=== PATIENT | female | born 1960 | race Caucasian/White ===

== ENCOUNTER 2017-04-05 15:59 | Inpatient (IN) | payer MEDICAID, OTHER ==
[2017-04-05 15:59] VITALS: BMI 27.2
--- NOTE | 2017-04-05 16:30 | C.PDOC ---
History Of Present Illness 56 yr old female presents to the ER for heroin detox., Patient is a pre- screened. Reports last use was last night. Patient is also complaining of flu like symptoms, nausea and myalgia. Denies any other drug use or alcohol, SI, HI , fever, vomiting, abdominal pain, weakness or numbness. Time Seen by Provider: 04/05/17 16:24 Chief Complaint (Nursing): Substance Abuse History Per: Patient History/Exam Limitations: no limitations Onset/Duration Of Symptoms: Days Suicide/Self Injury Attempted (Context): None Past Medical History Reviewed: Historical Data, Nursing Documentation, Vital Signs Vital Signs: Last Vital Signs Temp 98.5 F 04/05/17 16:10 Pulse 92 H 04/05/17 16:10 Resp 20 04/05/17 16:10 BP 114/76 04/05/17 16:10 Pulse Ox 92 L 04/05/17 17:15 - Medical History PMH: Asthma Family History: States: No Known Family Hx - Social History Hx Tobacco Use: Yes Hx Alcohol Use: No Hx Substance Use: Yes (today last used) - Immunization History Hx Tetanus Toxoid Vaccination: No Hx Influenza Vaccination: Yes Hx Pneumococcal Vaccination: Yes Review Of Systems Except As Marked, All Systems Reviewed And Found Negative. Constitutional: Negative for: Fever Gastrointestinal: Positive for: Nausea. Negative for: Vomiting, Abdominal Pain Neurological: Negative for: Weakness, Numbness Psych: Negative for: Suicidal ideation Physical Exam - Physical Exam Appears: Non-toxic, No Acute Distress, Other (Mild withdrawl symptoms) Skin: Warm, Dry, No Rash Head: Atraumatic, Normacephalic Eye(s): bilateral: Normal Inspection, PERRL, EOMI Oral Mucosa: Moist Lips: Normal Appearing Neck: Normal, Normal ROM, Supple Respiratory: Normal Breath Sounds, No Rales, No Rhonchi, No Stridor, No Wheezing Extremity: Normal ROM, No Tenderness, No Swelling Neurological/Psych: Oriented x3, Normal Speech, Other (Calm. Cooperative. No acute intoxication.) Gait: Steady ED Course And Treatment - Laboratory Results Result Diagrams: 04/05/17 16:46 04/05/17 16:46 O2 Sat by Pulse Oximetry: 92 - Other Rad CXR X-Ray: Viewed By Me, Read By Radiologist Interpretation: HISTORY: MED CLEAR. COMPARISON: 10/25/2015. TECHNIQUE: Chest PA and lateral. FINDINGS: LUNGS: No active pulmonary disease. PLEURA: No significant pleural effusion identified. No pneumothorax apparent. CARDIOVASCULAR: Normal. OSSEOUS STRUCTURES: No significant abnormalities. VISUALIZED UPPER ABDOMEN: Normal. OTHER FINDINGS: None. IMPRESSION: No active disease. No significant interval change compared to the prior examination (s). . Concordant results with the preliminary interpretation rendered by the emergency department physician\PA at the conclusion of the procedure. Progress - Re-Evaluation Re-evaluation Note: 04/05/17 16:30 d/w crisis hansel will eval in ER 04/05/17 17:14 O2 SAT C/W SMOKING HISTORY, PROBABLE DUE TO COPD. PT DENIES SOB OR OTHER RESP SX. CXR NO ACUTE FINDINGS, IMPROVED COMPARED TO PRIOR. DENIES UTI SX. RECOMMEND MEDICINE CONSULT PRN. MED CLEAR FOR PSYCH EVAL. CRISIS HANSEL NOTIFIEID - Data Reviewed Data Reviewed: Lab, Old records Medical Decision Making Medical Decision Making: PLAN: * CXR * Alcohol Serum * Drug Screen * CBC * CMP * Urinalysis * Nicoderm TD Disposition Counseled Patient/Family Regarding: Studies Performed, Diagnosis - Disposition Disposition: HOSPITALIZED Disposition Time: 17:19 Condition: STABLE Forms: [facility] (Amharic) - Clinical Impression Clinical Impression: Opiate abuse, continuous - Scribe Statement The provider has reviewed the documentation as recorded by the Viky Clinton Provider Attestation: All medical record entries made by the Viky were at my direction and personally dictated by me. I have reviewed the chart and agree that the record accurately reflects my personal performance of the history, physical exam, medical decision making, and the department course for this patient. I have also personally directed, reviewed, and agree with the discharge instructions and disposition. Decision To Admit - Pt Status Changed To: Hospital Disposition Of: Inpatient - Admit Certification Admit to Inpatient:: After my assessment, the patient will require hospitalization for at least two midnights. This is because of the severity of symptoms shown, intensity of services needed, and/or the medical risk in this patient being treated as an outpatient. - InPatient: Physician Admission Certification: I certify that this patient requires 2 or more midnights of care for the following reason:: SEE NOTE - . Bed Request Type: Detox Admitting Physician: Betina Jay Patient Diagnosis: Opiate abuse, continuous
--- NOTE | 2017-04-05 16:49 | RAD ---
HISTORY: MED CLEAR COMPARISON: 10/25/2015 TECHNIQUE: Chest PA and lateral FINDINGS: LUNGS: No active pulmonary disease. PLEURA: No significant pleural effusion identified. No pneumothorax apparent. CARDIOVASCULAR: Normal. OSSEOUS STRUCTURES: No significant abnormalities. VISUALIZED UPPER ABDOMEN: Normal. OTHER FINDINGS: None. IMPRESSION: No active disease. No significant interval change compared to the prior examination(s). Concordant results with the preliminary interpretation rendered by the emergency department physician procedure.
[2017-04-05 16:51] LABS: BASO % 0.5 % (0.0-2.0); EOS % 0.1 % (0.0-4.0); HEMOGLOBIN 15.1 g/dL (11.0-16.0); LYMPH # 2.1 K/uL (1.0-4.3); LYMPH % 30.8 % (20.0-40.0); MEAN CELL VOLUME 82.6 fL (81.0-99.0); MEAN CORPUSCULAR HEMOGLOBIN 28.3 pg (27.0-31.0); MEAN CORPUSCULAR HGB CONC 34.3 g/dL (33.0-37.0); MEAN PLATELET VOLUME 7.6 fL (7.2-11.7); MONO # 0.4 K/uL (0.0-0.8); MONO % 6.4 % (0.0-10.0); NEUT # 4.2 K/uL (1.8-7.0); NEUT % 62.2 % (50.0-75.0); NRBC % 0.1 % (0.0-2.0); RBC 5.32 Mil/uL (3.80-5.20); RED CELL DISTRIBUTION WIDTH 14.2 % (11.5-14.5); WHITE BLOOD COUNT 6.8 K/uL (4.8-10.8)
[2017-04-05 16:56] LABS: SQUAMOUS EPITHIAL 20 /hpf (0-5); URINE BACTERIA MOD (<OCC); URINE BILIRUBIN NEGATIVE (NEGATIVE); URINE BLOOD NEGATIVE (NEGATIVE); URINE CLARITY Hazy (Clear); URINE COLOR Yellow (YELLOW); URINE GLUCOSE (UA) NORMAL (Normal); URINE LEUKOCYTE ESTERASE 1+ Leu/uL (Negative); URINE NITRATE NEGATIVE (NEGATIVE); URINE PROTEIN 1+ mg/dL (NEGATIVE); URINE UROBILINOGEN NORMAL mg/dL (0.2-1.0)
[2017-04-05 17:09] LABS: BARBITURATES, UR NEGATIVE (NEGATIVE); BENZODIAZEPINES, UR POSITIVE (NEGATIVE); OPIATES, UR POSITIVE (NEGATIVE); PHENCYCLIDINE, UR NEGATIVE (NEGATIVE)
[2017-04-05 17:11] LABS: ALB/GLOB RATIO 1.2 (1.0-2.1); ALBUMIN 4.3 g/dL (3.5-5.0); ALT/SGPT 28 U/L (9-52); AST/SGOT 30 U/L (14-36); BLOOD UREA NITROGEN 11 mg/dL (7-17); CALCIUM 8.7 mg/dl (8.6-10.4); GFR AFRICAN-AMERICAN > 60; GFR NON-AFRICAN AMERICAN > 60
--- NOTE | 2017-04-05 18:52 | PCM.BM ---
<Aleyda Dickinson - Last Filed: 04/05/17 18:51> Treatment Plan Problems - Problems identified on initial assessmt Potential for opiate withdrawal Date Initiated: 04/05/17 Time Initiated: 18:52 Assessment reference: NA Status: Active Treatment assets and liabiliti Patient Assests: cooperative, ADL independent, negotiates basic needs, cognitively intact Patient Liabilities: substance abuse (opiate) - Milieu Protocol Maintain good personal hygiene: daily Encourage regular showers, daily Remind patient to perform daily oral care, daily Assist patient to perform ADL's Conduct patient checks and document Observation sheet: Q15 minutes Maintain personal safety: every shift Educate patient to report safety concerns to staff, every shift Monitor environment for contraband/sharps Medication safety: Monitor for expected outcome, potential side effects: every shift, Assess barriers to learning: every shift, Assess readiness for medication education: every shift <Leigh Jeter - Last Filed: 04/06/17 14:26> - Diagnosis (1) Opiate abuse, continuous Status: Acute Interventions: 04/06/17 14:26 * Assess 7x/week regarding severity of withdrawal * Educate regarding risks, benefits, side effects and alternatives of medications * Use Motivational Interviewing for abstinence * Use CBT for relapse prevention * Medication management for withdrawal symptoms * Encourage medication assisted treatment * <Barbara Coello - Last Filed: 04/06/17 16:27> Family Contact Family involvement: Zoeyy/SO not involved - Goals for Treatment Patient goals for treatment: Complete detox and transition to IOP. Discharge/Continuing Care - Education Needs Education Needs: Patient Medication, Patient Diagnosis/Disease Process, Patient Coping Skills, Patient Anger Management skills, Patient Placement options, Patient Community resources - Discharge Discharge Criteria: No longer exhibiting s/s of withdrawal, Reduction of target symptoms Discharge to:: Home - Treatment Team Participation Patient/Family/SO Statement: 04/06/17 16:27 "I wanna go to IOP after this..." Discussed with Family/SO: No Was Patient/Family/SO present at Treatment Team Meeting: Yes
[2017-04-05] MEDS ORDERED: Aluminum Hydroxide/Magnesium Hydroxide Susp (30 mL) PO PRN (18:54)
--- NOTE | 2017-04-06 13:25 | PCM.PSYCH ---
Initial Psychiatric Evaluation - Initial Psychiatric Evaluation Type of Admission: Voluntary Legal Status: Capacity Chief Complaint (in patient's own words): "I needed to stop this" History of Present Illness and Precipitating Events: The patient is seen, chart reviewed and case discussed. 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 The patient is using heroin up to 8 bags a day intranasally for the past 35 years. Her longest sobriety was 6 years around 19 6. She also uses Xanax 2 mg, sometimes more, daily for the past 8 months. She smokes a pack per day cigarettes and denies all other drugs and alcohol. Next and she was in [facility] program in 2017 her dose was 110 but she couldn't continue due to daily sessions. She used Suboxone from the streets. She was in detox 10 or 15 times and rehabilitation 5 times and she goes to . She is on probation. Past psych history: She reports having anxiety now and in the past, that's why she was given Xanax. No admissions and no suicide attempts. Family psych history: Denies Medical history: Denies. She was tested negative for HIV and hepatitis C about a year ago. Current Medications: Active Medications Generic Name Dose Route Start Last Admin Trade Name Freq PRN Reason Stop Dose Admin Al Hydrox/Mg Hydrox/Simethicone 30 ml 04/05/17 18:54 Maalox 30 Ml PO TID PRN Indigestion / Heartburn Amitriptyline HCl 50 mg 04/06/17 22:00 Elavil PO 04/08/17 22:01 HS REBEKAH Amitriptyline HCl 25 mg 04/08/17 22:00 Elavil PO 04/08/17 22:01 ONCE ONE Chlordiazepoxide 25 mg 04/06/17 12:00 04/06/17 11:59 Librium PO 04/10/17 11:59 25 mg Q6H REBEKAH Administration Taper Clonidine HCl 0.1 mg 04/05/17 18:54 Catapres PO Q8 PRN COWS Score More or Equal to 5 Hydroxyzine HCl 50 mg 04/06/17 09:59 Atarax PO Q6H PRN Anxiety Loperamide HCl 2 mg 04/05/17 18:54 Imodium PO Q8 PRN Diarrhea Methadone HCl 15 mg 04/06/17 10:00 04/06/17 09:29 Methadone PO 04/10/17 09:59 15 mg Q24H REBEKAH Administration Taper Nicotine 1 patch 04/06/17 10:00 04/06/17 09:29 Nicoderm Cq TD 1 patch DAILY REBEKAH Administration Nitrofurantoin Macrocrystals 100 mg 04/06/17 10:00 04/06/17 10:25 Macrobid PO 04/13/17 10:01 100 mg Q12H REBEKAH Administration Ondansetron HCl 4 mg 04/05/17 18:54 Zofran Tab PO Q8 PRN Nausea/Vomiting Pseudoephedrine HCl 60 mg 04/05/17 18:54 Sudafed Tab PO QID PRN Nasal/Sinus Congestion Quetiapine Fumarate 300 mg 04/06/17 22:00 Seroquel PO HS REBEKAH Past Psychiatric History - Past Psychiatric History Previous Treatment History: None Pertinent Medical Hx (Current Medical&Sleep Prob, Allergies): Allergies Allergy/AdvReac Type Severity Reaction Status Date / Time No Known Allergies Allergy Verified 04/05/17 16:29 Albuterol HFA [Ventolin HFA 90 mcg/actuation (8 g)] 2 puff IH [id number] #1 puff Review of Systems - Neurological Neurological: UNREMARKABLE - Psychiatric Psychiatric: Abnormal Sleep Pattern, Anxiety. absent: Homicidal Ideation, Paranoia, Suicidal Ideation Mental Status Examination - Personal Presentation Personal Presentation: Looks older than stated age - Affect Affect: Constricted - Motor Activity Motor Activity: Calm - Reliability in Providing Information Reliability in Providing Information: Good - Speech Speech: Organized - Mood Mood: Anxious - Formal Thought Process Formal Thought Process: No Impairment - Cognitive Functions Orientation: Person, Place, Situation, Time Sensorium: Alert Attention/Concentration: Attentive Estimate of Intelligence: Average Judgement: Intact, as evidence by: Insight regarding need for hospitalization Memory: Recent intact, as evidence by: Ability to recall events of the day, Remote intact, as evidenced by: Abilit to recall sig. life events - Risk Risk: Withdrawal, Diminished functioning - Strength & Assets Inventory Strength & Assets Inventory: Cooperative - Limitations Limitations: Living alone, Other DSM 5 DX - DSM 5 DSM 5 Diagnosis: Opioid withdrawal Opioid use disorder, severe Sedative, hypnotic or anxiolytic use disorder, moderate Generalized anxiety disorder - Recommended/Plan of Treatment Treatment Recommendations and Plan of Treatment: Methadone detox Librium detox Gabapentin for augmentation Taper off elevated due to risks EKG Increase Seroquel for sleep As needed medications All risks, benefits and alternatives of the meds discussed, and the pt agreed and understood. Attend groups and activities Supportive therapy and psychoeducation DC for abstinence CBT for relapse prevention Encourage MAT Refer to rehab or IOP, and self-help groups Smoking cessation with DC Nicotine patch 34 min Projected ELOS: 5-6 days Prognosis: Good with treatment Discharge Plan and Discharge Criteria: No withdrawal symptoms Refer to rehabilitation or IOP/MAT - Smoking Cessation Smoking Cessation Initiated: Yes
--- NOTE | 2017-04-07 13:57 | PCM.PYCHPN ---
Psychiatric Progress Note - Psychiatric Progress Note Patient seen today, length of contact: 16 min Patient Chief Complaint: "I am still feeling on edge " Problems Identified/Issues Discussed: The pt is seen, chart reviewed, case discussed with staff. Patient is nervous about her past EKG. Spoke with patient about EKG to calm her nerves The pt is compliant with medications and reports no side-effects. Symptoms are improving but needs more time to stabilize. After care discussed, support and psychoeducation given. Medication Change: Yes (detox changes daily) Medical Record Reviewed: Yes Mental Status Examination - Cognitive Function Orientation: Person, Place, Situation, Time Memory: Intact Attention: WNL Concentration: WNL Association: WNL Fund of Knowledge: WNL - Mood Mood: Anxious - Affect Affect: Constricted - Speech Speech: Appropriate - Formal Thought Process Formal Thought Process: No Impairment - Suicidal Ideation Suicidal Ideation: No - Homicidal Ideation Homicidal Ideation: No Goal/Treatment Plan - Goal/Treatment Plan Need for Continued Stay: Discharge may exacerbated symptoms, Severe functional impairment Progress Toward Problem(s) and Goals/Treatment Plan: Methadone detox Librium detox Gabapentin for augmentation Taper off elevated due to risks EKG Increase Seroquel for sleep As needed medications All risks, benefits and alternatives of the meds discussed, and the pt agreed and understood. Attend groups and activities Supportive therapy and psychoeducation NE for abstinence CBT for relapse prevention Encourage MAT Refer to rehab or IOP, and self-help groups Smoking cessation with NE Nicotine patch
--- NOTE | 2017-04-08 00:16 | CARD ---
APPROVED REPORT EKG Measurement Heart [id number] <Conclusion> Normal sinus rhythm with sinus arrhythmia Possible Anterolateral infarct, age undetermined Abnormal ECG
[2017-04-08] MEDS ORDERED: Influenza Vaccine 60 mcg/0.5 mL SYR (4YR UP) IM ONE (12:39)
[2017-04-08] MEDS ORDERED: Pneumococcal 23-Valent Vaccine IM ONE (12:40)
--- NOTE | 2017-04-08 13:09 | PCM.PYCHPN ---
Psychiatric Progress Note - Psychiatric Progress Note Patient seen today, length of contact: 16 min Patient Chief Complaint: "Nervous" Problems Identified/Issues Discussed: The pt is seen, chart reviewed, case discussed with staff. Support given, CBT and TX used briefly No new symptoms reported, improving slowly and needs more time No SEs from medications, risks discussed. After care discussed Medication Change: Yes (detox changes daily) Medical Record Reviewed: Yes Mental Status Examination - Cognitive Function Orientation: Person, Place, Situation, Time Memory: Intact Attention: WNL Concentration: WNL Association: WNL Fund of Knowledge: WNL - Mood Mood: Anxious - Affect Affect: Constricted - Speech Speech: Appropriate - Formal Thought Process Formal Thought Process: No Impairment - Suicidal Ideation Suicidal Ideation: No - Homicidal Ideation Homicidal Ideation: No Goal/Treatment Plan - Goal/Treatment Plan Need for Continued Stay: Discharge may exacerbated symptoms, Severe functional impairment Progress Toward Problem(s) and Goals/Treatment Plan: Methadone detox Librium detox Gabapentin for augmentation Taper off elevated due to risks EKG Increase Seroquel for sleep As needed medications All risks, benefits and alternatives of the meds discussed, and the pt agreed and understood. Attend groups and activities Supportive therapy and psychoeducation TX for abstinence CBT for relapse prevention Encourage MAT Refer to rehab or IOP, and self-help groups Smoking cessation with TX Nicotine patch
[2017-04-08 16:20] VITALS: RESP 18
[2017-04-09 05:43] VITALS: O2SAT 96
[2017-04-09 08:04] VITALS: BP 115/77; PULSE 100; TEMP 97.6
--- NOTE | 2017-04-09 08:39 | PCM.PYCHDC ---
Mental Status Examination - Mental Status Examination Orientation: Person, Place, Situation, Time Memory: Intact Mood: Anxious Affect: Constricted Speech: Appropriate, Loud Attention: WNL Concentration: WNL Association: WNL Fund of Knowledge: WNL Formal Thought Process: No Impairment Suicidal Ideation: No Current Homicidal Ideation?: No Discharge Summary - Discharge Note Reason for Hospitalization: Detox from opioids Consultations:: List each consultation separately and include: 1. Reason for request. 2. Findings. 3. Follow-up Summary of Hospital Course include:: 1. Description of specific treatment plan utilized for patients during their course of treatmen. 2. Summarize the time- course for resolution of acute symptoms and/or regressed behaviors. 3. Describe issues identified and worked on during hospitalization. 4. Describe medication utilized. 5. Describe medical problems identified and treated. 6. Reassessment of suicide risk Summary of Hospital Course: The pt was admitted and started on treatment with psychotherapy, support, psychoeducation and medications. PA and CBT used. The pt attended groups and activities, as well as milieu therapy. All the risks and benefits of medications are discussed and the patient understood and agreed. The pt improved with the treatments provided. After care discussed with the patient. Patient will be attending [facility] During the discharge patient was very irritable and angry for needing to wait for discharge orders to be processed. She states she had a "horrible experience " at this detox facility even though there were no issues and everybody did their best to help her. She was upset that she didn't get xanax. - Final Diagnosis (DSM 5) Condition upon Discharge: STABLE DSM 5: Opioid withdrawal Opioid use disorder, severe Sedative, hypnotic or anxiolytic use disorder, moderate Generalized anxiety disorder Personality disorder - unspecified (borderline traits) Disposition: HOME/ ROUTINE Follow-up Treatment Plan: Methadone detox Librium detox Gabapentin for augmentation Taper off elevated due to risks EKG Increase Seroquel for sleep As needed medications All risks, benefits and alternatives of the meds discussed, and the pt agreed and understood. Attend groups and activities Supportive therapy and psychoeducation PA for abstinence CBT for relapse prevention Encourage MAT Refer to rehab or IOP, and self-help groups Smoking cessation with PA Nicotine patch Prescriptions/Medication Reconciliation: Gabapentin [Neurontin] 300 mg PO BID #60 cap Nitrofurantoin Macrocrystals [Macrobid] 100 mg PO Q12H #4 cap QUEtiapine [Seroquel] 100 mg PO DAILY #30 tab QUEtiapine [Seroquel] 300 mg PO HS #30 tab - Smoking Cessation Smoking Cessation Medication prescribed: No - Antipsychotic Medications Pt discharged on 2 or more routine antipsychotic medications: No
== END 2017-04-09 08:52 | disposition home or self-care (01) | DRG 745 ==
LOC: C.ER 15:59 → C.7D 17:19
PROVIDERS: ADMIT Psychiatry & Neurology Psychiatry; ATTEND Psychiatry & Neurology Psychiatry
PROC: HZ2ZZZZ Detoxification Services for Substance Abuse Treatment (ICD-10-PCS; principal; 2017-04-05)
PROC: GZHZZZZ Group Psychotherapy (ICD-10-PCS; 2017-04-05)
DX: F11.23 Opioid dependence with withdrawal (principal); F17.210 Nicotine dependence, cigarettes, uncomplicated; F41.1 Generalized anxiety disorder; F60.9 Personality disorder, unspecified; J45.909 Unspecified asthma, uncomplicated; F19.10 Other psychoactive substance abuse, uncomplicated

== ENCOUNTER 2017-08-18 23:18 | Emergency (ER) | payer MEDICAID ==
[2017-08-18 23:19] VITALS: BMI 27.2
[2017-08-18 23:58] VITALS: BP 113/80; PULSE 116; RESP 24; O2SAT 93
[2017-08-19] MEDS ORDERED: Albuterol-Ipratrop 3 mg / 0.5 (3 ml) UD ONE ×4 (00:04→01:26)
[2017-08-19] MEDS ORDERED: Albuterol-Ipratrop 3 mg / 0.5 (3 ml) UD INH STA (00:04)
[2017-08-19] MEDS ORDERED: Sodium Chloride 0.9% 1,000 ML IV ONE (00:07)
--- NOTE | 2017-08-19 00:07 | C.PDOC ---
History Of Present Illness Patient presents to the ER with a complaint of SOB worsening over the last week. Patient states she has been feeling sick and has been coughing greenish/ brownish sputum. Patient could not find her inhaler at home and notes she still smokes. Denies chest pain, nausea, or vomiting. Time Seen by Provider: 08/19/17 00:07 Chief Complaint (Nursing): Respiratory Distress History Per: Patient History/Exam Limitations: no limitations Onset/Duration Of Symptoms: Days Current Symptoms Are (Timing): Still Present Associated Symptoms: Cough, Sputum Production Preciptating Factors: Other (Not known) Severity: Moderate Pain Scale Rating Of: 4 Recent travel outside of the [place]: No - Asthma History Rescue Medications: See Home Medication List Past Medical History Reviewed: Historical Data, Nursing Documentation, Vital Signs Vital Signs: Last Vital Signs Temp 100.2 F H 08/19/17 01:26 Pulse 116 H 08/18/17 23:52 Resp 24 08/18/17 23:52 BP 113/80 08/18/17 23:52 Pulse Ox 93 L 08/19/17 00:39 - Medical History PMH: Asthma - [facility] Procedures DETOXIFICATION SERVICES FOR SUBSTANCE ABUSE TREATMENT (04/05/17) GROUP PSYCHOTHERAPY (04/05/17) Family History: States: No Known Family Hx - Social History Hx Tobacco Use: Yes Hx Alcohol Use: No Hx Substance Use: No - Immunization History Hx Tetanus Toxoid Vaccination: No Hx Influenza Vaccination: Yes Hx Pneumococcal Vaccination: Yes Review Of Systems Constitutional: Negative for: Fever, Chills Cardiovascular: Negative for: Chest Pain, Palpitations Respiratory: Positive for: Cough, Sputum Gastrointestinal: Negative for: Nausea, Vomiting Physical Exam - Physical Exam Appears: Non-toxic Skin: Warm, Dry Head: Normacephalic Oral Mucosa: Moist Chest: Symmetrical, No Tenderness Cardiovascular: Rhythm Regular Respiratory: No Rales, Rhonchi (Diffuse), Wheezing Gastrointestinal/Abdominal: Soft, No Tenderness Neurological/Psych: Oriented x3 ED Course And Treatment - Laboratory Results Result Diagrams: 08/19/17 00:42 08/19/17 00:42 O2 Sat by Pulse Oximetry: 93 Pulse Ox Interpretation: Normal - Radiology CXR: Interpreted by Me, Viewed By Me CXR Interpretation: Yes: Infiltrates (rll). No: Fracture, Pnemothorax Progress Note: Blood work, CXR, EKG, and urinalysis ordered. Albuterol nebulizer , zosyn, solumedrol, and IV fluids administered. Critical Care Time - Critical Care Note Total Time (in mins): 30 Documented critical care: time excludes all time spent performing seperately billable procedures. Disposition Counseled Patient/Family Regarding: Studies Performed, Diagnosis, Need For Followup, Rx Given - Disposition Referrals: [facility] [Outside] On License Of [facility] [Outside] Disposition: HOME/ ROUTINE Disposition Time: 00:07 Condition: FAIR Additional Instructions: Please return if symptoms recur Prescriptions: Albuterol HFA [Ventolin HFA 90 mcg/actuation (8 g)] 2 puff IH [id number] #1 puff Azithromycin [Zithromax Tri-Kofi] 500 mg PO DAILY #3 tablet Prednisone [Deltasone] 20 mg PO DAILY #5 tablet Instructions: Asthma, Adult (DC) Forms: [facility] ([place]) - Clinical Impression Clinical Impression: Exacerbation of asthma - Scribe Statement The provider has reviewed the documentation as recorded by the Scribelida Venegas All medical record entries made by the Scribe were at my direction and personally dictated by me. I have reviewed the chart and agree that the record accurately reflects my personal performance of the history, physical exam, medical decision making, and the department course for this patient. I have also personally directed, reviewed, and agree with the discharge instructions and disposition.
[2017-08-19] MEDS ORDERED: Piperacillin/Tazobact 3.375 gm 100 ML IVPB STA (00:24)
[2017-08-19] MEDS: Albuterol-Ipratrop 3 mg / 0.5 (3 ml) UD IH SCH ×3 (00:28→01:26)
[2017-08-19 00:45] LABS: BASO % 0.3 % (0.0-2.0); EOS % 0.4 % (0.0-4.0); HEMOGLOBIN 13.6 g/dL (11.0-16.0); LYMPH # 2.3 K/uL (1.0-4.3); LYMPH % 26.1 % (20.0-40.0); MEAN CELL VOLUME 83.7 fL (81.0-99.0); MEAN CORPUSCULAR HEMOGLOBIN 28.5 pg (27.0-31.0); MEAN CORPUSCULAR HGB CONC 34.1 g/dL (33.0-37.0); MEAN PLATELET VOLUME 7.6 fL (7.2-11.7); MONO # 0.9 K/uL (0.0-0.8); MONO % 10.1 % (0.0-10.0); NEUT # 5.5 K/uL (1.8-7.0); NEUT % 63.1 % (50.0-75.0); RBC 4.76 Mil/uL (3.80-5.20); RED CELL DISTRIBUTION WIDTH 13.9 % (11.5-14.5); WHITE BLOOD COUNT 8.7 K/uL (4.8-10.8)
[2017-08-19] MEDS ORDERED: Piperacillin/Tazobact 3.375 gm 100 ML IVPB ONE (00:55)
[2017-08-19 01:07] LABS: CALCIUM 8.4 mg/dl (8.6-10.4); GFR AFRICAN-AMERICAN > 60; GFR NON-AFRICAN AMERICAN > 60
[2017-08-19 01:11] LABS: BLOOD UREA NITROGEN 12 mg/dL (7-17)
[2017-08-19 01:27] VITALS: TEMP 100.2
--- NOTE | 2017-08-19 09:02 | RAD ---
PROCEDURE: CHEST RADIOGRAPH, 1 VIEW HISTORY: SOB COMPARISON: 04/05/2017 FINDINGS: LUNGS: Opacity mid and lower right lung. Possible pneumonia. Followup advised. No other infiltrate elsewhere. PLEURA: No pneumothorax or pleural fluid seen. CARDIOVASCULAR: Normal. OSSEOUS STRUCTURES: No significant abnormalities. VISUALIZED UPPER ABDOMEN: Normal. OTHER FINDINGS: None. IMPRESSION: Mid and lower right lung opacity. Possible pneumonia. Followup advised.
== END 2017-08-19 01:44 | disposition home or self-care (01) ==
LOC: C.ER 23:18
DX: J45.901 Unspecified asthma with (acute) exacerbation (principal); F17.210 Nicotine dependence, cigarettes, uncomplicated
CPT/HCPCS: 71045; 80048; 83735; 85025; 96365; 96375; 99284; J2543; J2930; J7030

== ENCOUNTER 2018-01-18 16:45 | Inpatient (IN) | payer MEDICAID ==
[2018-01-18 16:45] VITALS: BMI 27.2
--- NOTE | 2018-01-18 18:09 | C.PDOC ---
Chief Complaint (Nursing): Substance Abuse Past Medical History Vital Signs: Last Vital Signs Temp 99.2 F 01/18/18 17:02 Pulse 103 H 01/18/18 17:02 Resp 20 01/18/18 17:02 BP 109/73 01/18/18 17:02 Pulse Ox 93 L 01/18/18 17:02 - Medical History PMH: Asthma Denies: Diabetes, Hepatitis, HIV, HTN, Seizures, Sexually Transmitted Disease - [facility] Procedures DETOXIFICATION SERVICES FOR SUBSTANCE ABUSE TREATMENT (04/05/17) GROUP PSYCHOTHERAPY (04/05/17) - Social History Hx Tobacco Use: Yes Hx Alcohol Use: No Hx Substance Use: No - Immunization History Hx Tetanus Toxoid Vaccination: No Hx Influenza Vaccination: Yes Hx Pneumococcal Vaccination: Yes ED Course And Treatment O2 Sat by Pulse Oximetry: 93 Disposition - Disposition
--- NOTE | 2018-01-18 18:15 | C.PDOC ---
History Of Present Illness 57 y/o female presents to ED requesting detox from Heroin and xanax. Patient states she uses Heroin IV and sniffs 10-20 bags daily, also states she uses 2 "bars" of xanax daily. No other complaints at this time. Chief Complaint (Nursing): Substance Abuse History Per: Patient History/Exam Limitations: no limitations Onset/Duration Of Symptoms: Days Current Symptoms Are (Timing): Still Present Suicide/Self Injury Attempted (Context): None Past Medical History Reviewed: Historical Data, Nursing Documentation, Vital Signs Vital Signs: Last Vital Signs Temp 99.2 F 01/18/18 17:02 Pulse 103 H 01/18/18 17:02 Resp 20 01/18/18 17:02 BP 109/73 01/18/18 17:02 Pulse Ox 93 L 01/18/18 17:02 - Medical History PMH: Asthma Surgical History: No Surg Hx - [facility] DETOXIFICATION SERVICES FOR SUBSTANCE ABUSE TREATMENT (04/05/17) GROUP PSYCHOTHERAPY (04/05/17) Family History: States: No Known Family Hx - Social History Hx Tobacco Use: Yes Hx Alcohol Use: No Hx Substance Use: No - Immunization History Hx Tetanus Toxoid Vaccination: No Hx Influenza Vaccination: Yes Hx Pneumococcal Vaccination: Yes Review Of Systems Constitutional: Negative for: Fever, Chills Cardiovascular: Negative for: Chest Pain Gastrointestinal: Negative for: Nausea, Vomiting Skin: Negative for: Rash Psych: Positive for: Other (substance abuse). Negative for: Suicidal ideation, Withdrawal Physical Exam - Physical Exam Appears: Non-toxic, No Acute Distress Skin: Warm, Dry, No Rash Head: Atraumatic, Normacephalic Eye(s): bilateral: Normal Inspection Oral Mucosa: Moist Neck: Supple Cardiovascular: Rhythm Regular Respiratory: Normal Breath Sounds, No Rales, No Rhonchi, No Wheezing Gastrointestinal/Abdominal: Soft, No Tenderness, No Guarding, No Rebound Neurological/Psych: Oriented x3, Normal Speech, Normal Cognition ED Course And Treatment - Laboratory Results Result Diagrams: 01/18/18 18:42 01/18/18 18:42 O2 Sat by Pulse Oximetry: 93 (RA) Medical Decision Making Medical Decision Making: Patient medically cleared for psychiatric evaluation and admission. -Dr. Richard Disposition - Disposition Disposition Time: 19:00 Condition: STABLE Forms: [facility] ([place]) - Clinical Impression Clinical Impression: Polysubstance abuse - Scribe Statement The provider has reviewed the documentation as recorded by the Scribe Aleksandar Montiel All medical record entries made by the Shawnibe were at my direction and personally dictated by me. I have reviewed the chart and agree that the record accurately reflects my personal performance of the history, physical exam, medical decision making, and the department course for this patient. I have also personally directed, reviewed, and agree with the discharge instructions and disposition.
[2018-01-18 18:46] LABS: BASO % 0.4 % (0.0-2.0); EOS % 0.6 % (0.0-4.0); HEMOGLOBIN 14.5 g/dL (11.0-16.0); LYMPH # 2.8 K/uL (1.0-4.3); LYMPH % 40.7 % (20.0-40.0); MEAN CELL VOLUME 82.9 fL (81.0-99.0); MEAN CORPUSCULAR HEMOGLOBIN 27.9 pg (27.0-31.0); MEAN CORPUSCULAR HGB CONC 33.7 g/dL (33.0-37.0); MEAN PLATELET VOLUME 7.7 fL (7.2-11.7); MONO # 0.4 K/uL (0.0-0.8); NEUT # 3.5 K/uL (1.8-7.0); NEUT % 52.3 % (50.0-75.0); NRBC % 0.1 % (0.0-2.0); RBC 5.19 Mil/uL (3.80-5.20); RED CELL DISTRIBUTION WIDTH 14.5 % (11.5-14.5); WHITE BLOOD COUNT 6.8 K/uL (4.8-10.8)
[2018-01-18 18:46] LABS: BARBITURATES, UR NEGATIVE (NEGATIVE); PHENCYCLIDINE, UR NEGATIVE (NEGATIVE)
[2018-01-18 18:55] LABS: BENZODIAZEPINES, UR POSITIVE (NEGATIVE); OPIATES, UR POSITIVE (NEGATIVE)
[2018-01-18 18:59] LABS: ALB/GLOB RATIO 1.4 (1.0-2.1); ALBUMIN 4.1 g/dL (3.5-5.0); ALT/SGPT 54 U/L (9-52); AST/SGOT 35 U/L (14-36); BLOOD UREA NITROGEN 21 mg/dL (7-17); CALCIUM 9.2 mg/dl (8.6-10.4); GFR NON-AFRICAN AMERICAN > 60
[2018-01-18 19:02] LABS: SQUAMOUS EPITHIAL 10 /hpf (0-5); URINE BACTERIA RARE (<OCC); URINE BILIRUBIN NEGATIVE (NEGATIVE); URINE BLOOD NEGATIVE (NEGATIVE); URINE CLARITY Hazy (Clear); URINE COLOR Yellow (YELLOW); URINE GLUCOSE (UA) NORMAL (Normal); URINE LEUKOCYTE ESTERASE NEG Leu/uL (Negative); URINE PROTEIN NEGATIVE (NEGATIVE); URINE UROBILINOGEN NORMAL mg/dL (0.2-1.0)
--- NOTE | 2018-01-18 19:23 | PCM.BM ---
<AlokShakaAleyda - Last Filed: 01/18/18 19:21> Treatment Plan Problems - Problems identified on initial assessmt Potential for benzo withdrawal Date Initiated: 01/18/18 Time Initiated: 19:22 Assessment reference: NA Status: Active Potential for opiate withdrawal Date Initiated: 01/18/18 Time Initiated: 19:22 Assessment reference: NA Status: Active Treatment assets and liabiliti Patient Assests: cooperative, ADL independent, negotiates basic needs, cogniti vely intact Patient Liabilities: substance abuse (Benzo, opiates) - Milieu Protocol Maintain good personal hygiene: daily Encourage regular showers, daily Remind patient to perform daily oral care, daily Assist patient to perform ADL's Conduct patient checks and document Observation sheet: Q15 minutes Maintain personal safety: every shift Educate patient to report safety concerns to staff, every shift Monitor environment for contraband/sharps Medication safety: Monitor for expected outcome, potential side effects: every shift, Assess barriers to learning: every shift, Assess readiness for medication education: every shift <Leigh Jeter - Last Filed: 01/19/18 12:09> - Diagnosis (1) Opiate abuse, continuous Status: Acute Interventions: 01/19/18 12:09 * Assess 7x/week regarding severity of withdrawal * Educate regarding risks, benefits, side effects and alternatives of medications * Use Motivational Interviewing for abstinence * Use CBT for relapse prevention * Medication management for withdrawal symptoms * Encourage medication assisted treatment *
[2018-01-18] MEDS ORDERED: Aluminum Hydroxide/Magnesium Hydroxide Susp (30 mL) PO PRN (23:07)
--- NOTE | 2018-01-19 12:11 | PCM.PSYCH ---
Initial Psychiatric Evaluation - Initial Psychiatric Evaluation Type of Admission: Voluntary Legal Status: Capacity Chief Complaint (in patient's own words): "I need help again, I feel very bad" History of Present Illness and Precipitating Events: She is seen, chart reviewed, and case discussed. She is a 57 year old female who is single and has 1 child that is 26 years old. She lives on her own and is not currently employed. Pt states that her boyfriend takes care of her. She uses 20-25 bags of heroin a day by snorting and injecting. She began using when she was 21 years old and has been a regular user ever since. She was once sober for one year when she was incarcerated but has been incarcerated 32 times in her life. She also uses at least 2-3 sticks of Xanax every day or every other day and smokes 1 pack of cigarettes a day. She denies use of cocaine though it is present in her system. Pt denies use of any other substances. She has attended rehabilitation at [facility] years ago followed by admission to a [facility]. She has undergone detoxification to completion at this program 1 year ago. Following her detoxification here she saw Dr. Lu for suboxone but she was later referred to a higher level of care, which she did not follow and relapsed. Pt denies suicidal or homicidal ideations. Pt has a poor appetite and sleep. Pt is sweaty and cramping. Past Medical History: Denies Allergies: Denies Surgical History: section Family History: Denies Psychiatric History: Anxiety d/o unspecified, likely PTSD and depression too Current Medications: Active Medications Generic Name Dose Route Start Last Admin Trade Name Freq PRN Reason Stop Dose Admin Al Hydrox/Mg Hydrox/Simethicone 30 ml 01/18/18 23:07 Maalox 30 Ml PO TID PRN Indigestion / Heartburn Chlordiazepoxide 25 mg 01/18/18 19:53 01/18/18 20:07 Librium PO 25 mg Q6 PRN Administration benzo withdrawal Chlordiazepoxide 25 mg 01/19/18 10:00 01/19/18 09:22 Librium PO 01/24/18 09:59 25 mg Q6H REBEKAH Administration Taper Hydroxyzine HCl 50 mg 01/19/18 12:08 Atarax PO Q6 PRN Anxiety Loperamide HCl 2 mg 01/18/18 23:07 Imodium PO Q8 PRN Diarrhea Methadone HCl 20 mg 01/19/18 10:00 01/19/18 09:22 Methadone PO 01/23/18 09:59 20 mg DAILY REBEKAH Administration Taper Nicotine 1 patch 01/19/18 10:15 01/19/18 10:26 Nicoderm Cq TD 1 patch DAILY REBEKAH Administration Ondansetron HCl 4 mg 01/18/18 23:07 Zofran Tab PO Q8 PRN Nausea/Vomiting Trazodone HCl 100 mg 01/19/18 12:08 Desyrel PO HS PRN Insomnia Past Psychiatric History - Past Psychiatric History Previous Treatment History: None Pertinent Medical Hx (Current Medical&Sleep Prob, Allergies): Allergies Allergy/AdvReac Type Severity Reaction Status Date / Time No Known Allergies Allergy Verified 01/18/18 17:02 No Known Home Med 01/18/18 Review of Systems - Neurological Neurological: UNREMARKABLE - Psychiatric Psychiatric: Abnormal Sleep Pattern, Anhedonia, Anxiety, Behavioral Changes, Change in Appetite, Depression, Difficulty Concentrating, Irritability. absent: Hallucinations, Homicidal Ideation, Paranoia, Suicidal Ideation Mental Status Examination - Personal Presentation Personal Presentation: Looks older than stated age - Affect Affect: Constricted - Motor Activity Motor Activity: Calm - Reliability in Providing Information Reliability in Providing Information: Good - Speech Speech: Organized - Mood Mood: Depressed, Anxious - Formal Thought Process Formal Thought Process: No Impairment - Cognitive Functions Orientation: Person, Place, Situation, Time Sensorium: Alert Attention/Concentration: Attentive Estimate of Intelligence: Average Judgement: Intact, as evidence by: Insight regarding need for hospitalization Memory: Recent intact, as evidence by: Ability to recall events of the day, Remote intact, as evidenced by: Abilit to recall sig. life events - Risk Risk: Withdrawal, Diminished functioning - Strength & Assets Inventory Strength & Assets Inventory: Cooperative - Limitations Limitations: Living alone DSM 5 DX - DSM 5 DSM 5 Diagnosis: Opioid withdrawal Opioid use d/o - severe Sedative hypnotic use d/o Depressive d/ o- unspecified - Recommended/Plan of Treatment Treatment Recommendations and Plan of Treatment: Taper with methadone Gabapentin for augmentation if needed As needed medications All risks, benefits and alternatives of the meds discussed, and the pt agreed and understood. Attend groups and activities Supportive therapy and psychoeducation [place] for abstinence CBT for relapse prevention Encourage MAT Refer to rehab or IOP, and self-help groups Teach healthy lifestyle methods, i.e. diet, exercise, meditation Smoking cessation with [place] Nicotine patch if needed 34 min Projected ELOS: 4-5 days Prognosis: good w treatment - Smoking Cessation Smoking Cessation Initiated: Yes
--- NOTE | 2018-01-20 14:05 | PCM.PYCHPN ---
Psychiatric Progress Note - Psychiatric Progress Note Patient seen today, length of contact: 16 min Patient Chief Complaint: "I am better" Problems Identified/Issues Discussed: The pt is seen, chart reviewed, case discussed with staff. The pt is compliant with medications and reports no side-effects. Symptoms are improving but needs more time to stabilize. Pt attends groups and activities. Support given, psycho-education provided. After care discussed. Medication Change: Yes (detox changes daily) Medical Record Reviewed: Yes Mental Status Examination - Cognitive Function Orientation: Person, Place, Situation, Time Memory: Intact Attention: Poor Concentration: Poor Association: WNL Fund of Knowledge: WNL - Mood Mood: Depressed, Anxious - Affect Affect: Constricted - Speech Speech: Appropriate - Formal Thought Process Formal Thought Process: No Impairment - Suicidal Ideation Suicidal Ideation: No - Homicidal Ideation Homicidal Ideation: No Goal/Treatment Plan - Goal/Treatment Plan Need for Continued Stay: Discharge may exacerbated symptoms, Severe functional impairment Progress Toward Problem(s) and Goals/Treatment Plan: Taper with methadone Gabapentin for augmentation if needed As needed medications All risks, benefits and alternatives of the meds discussed, and the pt agreed and understood. Attend groups and activities Supportive therapy and psychoeducation [place] for abstinence CBT for relapse prevention Encourage MAT Refer to rehab or IOP, and self-help groups Teach healthy lifestyle methods, i.e. diet, exercise, meditation Smoking cessation with [place] Nicotine patch if needed Estimated Date of D/C: 01/23/18
[2018-01-20 14:21] VITALS: TEMP 98.4
--- NOTE | 2018-01-21 09:38 | PCM.PYCHDC ---
Mental Status Examination - Mental Status Examination Orientation: Person Discharge Summary - Discharge Note Consultations:: List each consultation separately and include: 1. Reason for request. 2. Findings. 3. Follow-up Summary of Hospital Course include:: 1. Description of specific treatment plan utilized for patients during their course of treatmen. 2. Summarize the time- course for resolution of acute symptoms and/or regressed behaviors. 3. Describe issues identified and worked on during hospitalization. 4. Describe medication utilized. 5. Describe medical problems identified and treated. 6. Reassessment of suicide risk Summary of Hospital Course: She is seen, chart reviewed, and case discussed. She is a 57 year old female who is single and has 1 child that is 26 years old. She lives on her own and is not currently employed. Pt states that her boyfriend takes care of her. She uses 20-25 bags of heroin a day by snorting and injecting. She began using when she was 21 years old and has been a regular user ever since. She was once sober for one year when she was incarcerated but has been incarcerated 32 times in her life. She also uses at least 2-3 sticks of Xanax every day or every other day and smokes 1 pack of cigarettes a day. She denies use of cocaine though it is present in her system. Pt denies use of any other substances. She has attended rehabilitation at [facility] 5 years ago followed by admission to a [facility]. She has undergone detoxification to completion at this program 1 year ago. Following her detoxification here she saw Dr. Lu for suboxone but she was later referred to a higher level of care, which she did not follow and relapsed. Pt denies suicidal or homicidal ideations. Pt has a poor appetite and sleep. Pt is sweaty and cramping. Past Medical History: Denies Allergies: Denies Surgical History: section Family History: Denies Psychiatric History: Anxiety d/o unspecified, likely PTSD and depression too She left a day early. She will go to [facility] and consider suboxone - Diagnosis (1) Opiate abuse, continuous Current Visit: No Status: Acute - Final Diagnosis (DSM 5) Condition upon Discharge: STABLE Disposition: HOME/ ROUTINE Follow-up Treatment Plan: Taper with methadone Gabapentin for augmentation if needed As needed medications All risks, benefits and alternatives of the meds discussed, and the pt agreed and understood. Attend groups and activities Supportive therapy and psychoeducation [place] for abstinence CBT for relapse prevention Encourage MAT Refer to rehab or IOP, and self-help groups Teach healthy lifestyle methods, i.e. diet, exercise, meditation Smoking cessation with [place] Nicotine patch if needed Prescriptions/Medication Reconciliation: hydrOXYzine HCl [Atarax] 50 mg PO DAILY PRN #30 tab PRN Reason: Anxiety traZODone [Desyrel] 100 mg PO HS PRN #30 tab PRN Reason: Insomnia
[2018-01-21 10:07] VITALS: BP 121/70; PULSE 60; RESP 19; O2SAT 97
== END 2018-01-21 10:00 | disposition home or self-care (01) | DRG 895 ==
LOC: C.ER 16:45 → C.7D 19:06
PROVIDERS: ADMIT Psychiatry & Neurology Psychiatry; ATTEND Psychiatry & Neurology Psychiatry
PROC: HZ2ZZZZ Detoxification Services for Substance Abuse Treatment (ICD-10-PCS; principal; 2018-01-18)
PROC: HZ59ZZZ Individual Psychotherapy for Substance Abuse Treatment, Supportive (ICD-10-PCS; 2018-01-18)
PROC: HZ81ZZZ Medication Management for Substance Abuse Treatment, Methadone Maintenance (ICD-10-PCS; 2018-01-18)
PROC: HZ80ZZZ Medication Management for Substance Abuse Treatment, Nicotine Replacement (ICD-10-PCS; 2018-01-18)
PROC: HZ46ZZZ Group Counseling for Substance Abuse Treatment, Psychoeducation (ICD-10-PCS; 2018-01-18)
DX: F11.23 Opioid dependence with withdrawal (principal); F43.10 Post-traumatic stress disorder, unspecified; F32.9 Major depressive disorder, single episode, unspecified; F13.10 Sedative, hypnotic or anxiolytic abuse, uncomplicated; F17.210 Nicotine dependence, cigarettes, uncomplicated; J45.909 Unspecified asthma, uncomplicated